=== PATIENT | female | born 1960 | race Caucasian/White ===

== ENCOUNTER 2019-01-23 16:23 | Emergency (ER) | payer OTHER ==
[2019-01-23 17:13] VITALS: BP 135/65
--- NOTE | 2019-01-23 17:35 | UC ---
Lower Extremity/Ankle HPI - HPI Summary HPI Summary: Pt presents with c/o left foot pain that began ~ 2 months ago s/p falling on to left knee. 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 No known mets to bone. - History of Current Complaint Chief Complaint: UCLowerExtremity Stated Complaint: LEFT FOOT CONCERN Time Seen by Provider: 01/23/19 17:07 Hx Obtained From: Patient Hx Last Menstrual Period: N/A ?: No Onset/Duration: Sudden Onset, Lasting Weeks - 8 weeks, Still Present Severity Initially: Mild Severity Currently: Mild Pain Intensity: 4 Aggravating Factor(s): Standing, Ambulation Alleviating Factor(s): Rest, Elevation Able to Bear Weight: Yes - c/o pain with weight bearing, - Risk Factors Gout Risk Factors: Age Over 40 DVT Risk Factors: Smoking - hx of Septic Arthritis Risk Factor: Immunosuppressed - currently being treated with chemo for lung ca - Allergies/Home Medications Allergies/Adverse Reactions: Allergies Allergy/AdvReac Type Severity Reaction Status Date / Time codeine Allergy Severe airway Verified 01/23/19 17:14 swelling bee venom protein (honey bee) Allergy Intermediate swelling Verified 01/23/19 17 :14 at site Penicillins Allergy Intermediate Hives Verified 01/23/19 17:14 Home Medications: Home Medications Levothyroxine TAB* [Synthroid TAB*] 50 mcg PO DAILY 01/23/19 [History Confirmed 01/23/19] PMH/Surg Hx/FS Hx/Imm Hx Previously Healthy: No Cancer History: Lung Cancer - Surgical History Surgical History: Yes Surgery Procedure, Year, and Place: x2. port - Family History Known Family History: Positive: Cardiac Disease - Social History Occupation: Works From/At Home Lives: With Family Alcohol Use: Occasionally Substance Use Type: None Smoking Status (MU): Former Smoker When Did the Patient Quit Smoking/Using Tobacco: 03/02/2018 Review of Systems All Other Systems Reviewed And Are Negative: Yes Constitutional: Positive: Negative Skin: Positive: Negative Eyes: Positive: Negative ENT: Positive: Negative Respiratory: Positive: Negative Cardiovascular: Positive: Negative Gastrointestinal: Positive: Negative Genitourinary: Positive: Negative Motor: Positive: Negative Neurovascular: Positive: Negative Musculoskeletal: Positive: Arthralgia, Myalgia Neurological: Positive: Negative Psychological: Positive: Negative Is Patient Immunocompromised?: No Physical Exam - Summary Physical Exam Summary: c/o pain left plantar aspect of foot between 3rd and 5th digits distal aspect. Triage Information Reviewed: Yes Appearance: Well-Appearing, Thin Vital Signs: Initial Vital Signs Temp 97.9 F 01/23/19 17:06 Pulse 76 01/23/19 17:06 Resp 16 01/23/19 17:06 BP 135/65 01/23/19 17:06 Pulse Ox 100 01/23/19 17:06 Vital Signs Reviewed: Yes Eye Exam: Normal ENT Exam: Normal Dental Exam: Normal Neck exam: Normal Respiratory: Positive: No respiratory distress Musculoskeletal: Positive: Strength Intact, ROM Intact, Other: - c/o tenderness left plantar aspect of lateral left foot. Neurological Exam: Normal Psychological Exam: Normal Skin Exam: Normal Lower Extremity Course/Dx - Course Course Of Treatment: I discussed with the patient that the xray will be read in the morning by radiologist. Pt verbalized understanding and agreed to plan of care. - Differential Dx/Diagnosis Differential Diagnosis/HQI/PQRI: Contusion, Fracture (Closed), Tendonitis Provider Diagnosis: Interdigital neuroma of left foot, Left foot pain, Tendinitis of left foot Discharge - Sign-Out/Discharge Documenting (check all that apply): Patient Departure All imaging exams completed and their final reports reviewed: No - Discharge Plan Condition: Stable Disposition: HOME Patient Education Materials: Arthralgia (ED), Hernandez Neuroma (ED), Metatarsalgia (DC) Referrals: Steffen Sahu MD [Primary Care Provider] - If Needed Lonny Weston DO [Doctor of Osteopathy] - If Needed - Billing Disposition and Condition Condition: STABLE Disposition: Home - Attestation Statements Provider Attestation: Per institutional requirements, I have reviewed the chart, however, I was not consulted specifically or made aware of this patient by the midlevel provider. I did not personally evaluate, interact with , or disposition this patient.
--- NOTE | 2019-01-24 16:35 | ED ---
Progress - Progress Note Progress Note: final read NAD per radiology. Course/Dx - Diagnoses Provider Diagnoses: Interdigital neuroma of left foot, Left foot pain, Tendinitis of left foot Discharge - Sign-Out/Discharge Documenting (check all that apply): Patient Departure All imaging exams completed and their final reports reviewed: Yes - Discharge Plan Condition: Stable Disposition: HOME Patient Education Materials: Arthralgia (ED), Hernandez Neuroma (ED), Metatarsalgia (DC) Referrals: Lonny Weston DO [Doctor of Osteopathy] - If Needed Steffen Sahu MD [Primary Care Provider] - If Needed - Billing Disposition and Condition Condition: STABLE Disposition: Home
== END 2019-01-23 18:36 | disposition home or self-care (01) ==
LOC: UCCORT 16:23
DX: G57.82 Other specified mononeuropathies of left lower limb (principal); M79.672 Pain in left foot; M77.52 Other enthesopathy of left foot and ankle; C34.90 Malignant neoplasm of unspecified part of unspecified bronchus or lung; C79.31 Secondary malignant neoplasm of brain; Z88.5 Allergy status to narcotic agent; Z91.030 Bee allergy status; Z88.0 Allergy status to penicillin; Z87.891 Personal history of nicotine dependence
CPT/HCPCS: 99212; G0463